=== PATIENT | male | born 2000 | race African-American/Black ===

== ENCOUNTER 2020-12-06 11:45 | Emergency (ER) | payer SELFPAY ==
[~2020-12-06] VITALS: Ht 162.6 cm; Wt 112.4 kg
[2020-12-06 12:20] VITALS: TEMP 100.7
[2020-12-06 13:30] VITALS: BP 138/92; PULSE 94
== END 2020-12-06 13:30 | disposition home or self-care (01) ==
LOC: COL.ER 11:45
DX: U07.1 COVID-19 (principal)

== ENCOUNTER 2020-12-09 07:52 | Emergency (ER) | payer SELFPAY ==
[~2020-12-09] VITALS: Ht 165.1 cm; Wt 112.3 kg
[2020-12-09 08:11] VITALS: TEMP 98.2
[2020-12-09] MEDS ORDERED: ZITHROMAX Z PA250 MG PO (09:12)
[2020-12-09 09:39] VITALS: BP 107/82; PULSE 100
== END 2020-12-09 09:39 | disposition home or self-care (01) ==
LOC: COL.ER 07:52
DX: U07.1 COVID-19 (principal)
CPT/HCPCS: J1100

== ENCOUNTER 2021-07-19 19:33 | Emergency (ER) | payer SELFPAY ==
[~2021-07-19] VITALS: Ht 162.6 cm; Wt 112.7 kg
[~2021-07-19 19:33] MED LIST: ZITHROMAX Z PA250 MG PO
[2021-07-19 19:46] VITALS: TEMP 98
[2021-07-19 21:22] VITALS: BP 144/78; PULSE 76
== END 2021-07-19 21:22 | disposition home or self-care (01) ==
LOC: COL.ER 19:33
DX: S61.213A Laceration without foreign body of left middle finger without damage to nail, initial encounter (principal); Z98.890 Other specified postprocedural states; Z23 Encounter for immunization; W25.XXXA Contact with sharp glass, initial encounter; Y99.0 Civilian activity done for income or pay

== ENCOUNTER 2021-10-29 09:17 | Emergency (ER) | payer SELFPAY ==
[~2021-10-29] VITALS: Ht 162.6 cm; Wt 113.6 kg
[2021-10-29 09:58] VITALS: BP 146/89; PULSE 98; TEMP 98.6
== END 2021-10-29 10:02 | disposition home or self-care (01) ==
LOC: COL.ER 09:17
DX: Z20.2 Contact with and (suspected) exposure to infections with a predominantly sexual mode of transmission (principal)
CPT/HCPCS: J0696